=== PATIENT | female | born 1995 | race Caucasian/White ===

== ENCOUNTER 2020-09-24 20:54 | Outpatient (REF) | payer SELFPAY ==
[2020-09-26 14:22] LABS: COVID-19 RT-PCR UVMMC Result Negative (Negative)
== END 2020-09-24 20:55 | disposition home or self-care (01) ==
LOC: NCHCN 20:54
PROVIDERS: PCP Physician Assistant Medical; Visit Provider Family Medicine
DX: Z20.822 Contact with and (suspected) exposure to COVID-19 (principal); J02.9 Acute pharyngitis, unspecified
CPT/HCPCS: U0003

== ENCOUNTER 2022-03-30 17:50 | Outpatient (REF) | payer SELFPAY ==
[2022-04-01 12:14] LABS: COVID-19 RT-PCR UVMMC Result Negative (Negative)
== END 2022-03-30 17:51 | disposition home or self-care (01) ==
LOC: LBN 17:50
PROVIDERS: PCP Physician Assistant Medical; Visit Provider Physician Assistant Medical
DX: J02.9 Acute pharyngitis, unspecified (principal); Z20.822 Contact with and (suspected) exposure to COVID-19
CPT/HCPCS: U0003; 87070

== ENCOUNTER 2023-06-22 15:52 | Outpatient (REF) | payer SELFPAY ==
[2023-06-22 21:51] LABS: Hemoglobin A1C 5.4 % (<5.7)
[2023-06-22 21:54] LABS: LDL CHOLESTEROL 70 mg/dL (<100)
== END 2023-06-22 15:53 | disposition home or self-care (01) ==
LOC: NCHCN 15:52
PROVIDERS: PCP Physician Assistant Medical; Visit Provider Family Medicine
DX: Z00.00 Encounter for general adult medical examination without abnormal findings (principal); Z13.1 Encounter for screening for diabetes mellitus; Z13.220 Encounter for screening for lipoid disorders
CPT/HCPCS: 83721; 83036

== ENCOUNTER 2023-07-18 20:36 | Outpatient (REF) | payer SELFPAY ==
[2023-07-18 20:55] LABS: Bilirubin Negative (Negative); Blood Negative (Negative); Clarity Clear (Clear); Glucose Negative (Negative); Ketones Negative (Negative); Leukocyte Esterase Negative (Negative); Nitrite Negative (Negative); Specific Gravity >= 1.030 (1.005-1.025); Urobilinogen 0.2 mg/dL (Up to 0.2)
== END 2023-07-18 20:37 | disposition home or self-care (01) ==
LOC: NCHCN 20:36
PROVIDERS: PCP Physician Assistant Medical; Visit Provider Family Medicine
DX: R30.0 Dysuria (principal)
CPT/HCPCS: 81003

== ENCOUNTER 2023-08-17 17:56 | Outpatient (REF) | payer SELFPAY ==
--- NOTE | 2023-08-17 16:00 | PAPFT_PTH ---
PATIENT: Leslie Garcia LOC: [facility] U#:[id number] AGE/SX: 28/F ROOM: RE08/17/[address]: Leah Mcclendon : 1995 BED: DIS: 08/17/2023 SPEC #: [id number] RECD: 08/18/23 12:57 STATUS: [facility] #: [id number] KITTY: 08/17/23 16:[address]: Leah Mcclendon DEPT: [facility] Cytology RECD BY: Cassie Murrieta ENTERED: 08/18/23 12:57 SP TYPE: PAPFT OTHR DR: Alicia Fu Tissues: 1 - CX/ENDOCX FOR PAP SMEARS Procedures: PAP THIN PREP/[facility] Screening Comments: [id number]
== END 2023-08-17 17:57 | disposition home or self-care (01) ==
LOC: NCHCN 17:56
PROVIDERS: PCP Physician Assistant Medical; Visit Provider Family Medicine
DX: Z12.4 Encounter for screening for malignant neoplasm of cervix (principal)
CPT/HCPCS: 88142

== ENCOUNTER 2024-09-03 12:06 | Emergency (ER) | payer SELFPAY ==
[2024-09-03] VITALS (7 sets, daily range): BP systolic 122–130; BP diastolic 66–82; PULSE 92–109; RESP 15–31; TEMP 36.6–37.1; O2SAT 98–100
--- NOTE | 2024-09-03 12:00 | RT.EKG_ITS ---
APPROVED REPORT Exam: Resting ECG Reason for Exam: chest pain Patient Location: E HR:97 bpm ECG Measurements Heart Rate 97 AXIS VT 136 P 45 QRSd 96 QRS 11 QT 360 T 23 QTc 457 Conclusion Sinus rhythm...normal P axis, V-rate 60- 99 No Occlusion [place]
--- NOTE | 2024-09-03 12:45 | DI.RAD_ITS ---
Exam(s) XR CHEST 2V PA LATERAL EXAM: XR CHEST 2V PA LATERAL CLINICAL HISTORY: cough. TECHNIQUE: 2D digital imaging was performed. COMPARISON: No exams were available for comparison FINDINGS: 2 views: Heart size is normal. The mediastinum is not widened. Lungs are clear. No infiltrates nor pleural effusions. IMPRESSION: No acute pulmonary findings. DATA REPOSITORY: RADIATION DOSE DELIVERED:
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
[2024-09-03 13:15] LABS: Influenza A PCR Negative (Negative); Influenza B PCR Negative (Negative); RSV PCR Negative (Negative)
[2024-09-03 13:16] LABS: Source Nasopharynx
[2024-09-03 13:17] LABS: COVID-19 PCR Positive (Negative)
[2024-09-03] MEDS: Albuterol HFA 8 GM 60 PUFF INH IH (14:09)
== END 2024-09-03 14:16 | disposition home or self-care (01) ==
LOC: ER 13:56
PROVIDERS: Emergency Provider Physician Assistant; PCP Physician Assistant Medical
DX: R06.02 Shortness of breath (principal); U07.1 COVID-19; R50.9 Fever, unspecified; R05.9 Cough, unspecified
CPT/HCPCS: 99285; 99283; 81025; 87637; 93005; 71046; 93010